=== PATIENT | male | born 1935 | race Caucasian/White ===

== ENCOUNTER 2019-03-25 11:42 | Emergency (ER) | payer MEDICARE, OTHER ==
[~2019-03-25] VITALS: Ht 170.2 cm; Wt 59.0 kg
[~2019-03-25 11:42] MED LIST: AMBIEN10 MG PO; ARICEPT10 MG PO; ASPIR 8181 MG ORAL; CALCARB 600600 MG PO; CALCIUM-FOLIC1 EACH PO; CLARITIN10 M2 PO; COLACE100 MG ORAL; COSOPT EYE DROP10 ML OP; DEPAKOTE500 MG PO; FLONASE1 SPRAYS NASAL; FOSAMAX70 MG PO; HYTRIN1 MG PO; ISOPTO CARPINE1 DRO2 BOTH EYES; KEPPRA500 MG ORAL; LIORESAL10 MG PO; NAMENDA5 MG PO; NORVASC5 MG PO; NUEDEXTA 20-101 EACH PO; PROTONIX40 MG ORAL; QUETIAPINE FUMA25 MG ORAL; SIMVASTATIN40 MG PO; TRAMADOL HCL50 MG PO; VIGAMOX1 DROP RIGHT EYE; ZESTRIL20 MG PO
--- NOTE | 2019-03-25 11:44 | NUR ---
ED Nurse Note: pt arrived to ed with [facility] from [facility] due to poor oral intake. pt is able to ambulate. pt reports he lost 20 lbs
[2019-03-25 11:45] VITALS: BP 132/84
[2019-03-25] MEDS ORDERED: ZANTAC150 MG ORAL (11:53)
[2019-03-25] MEDS ORDERED: DDAVP0.2 MG PO (11:53)
[2019-03-25] MEDS ORDERED: OYSCO-500500 M1 PO (11:53)
[2019-03-25] MEDS ORDERED: SIMBRINZA 1%-0.28 ML OP (11:53)
[2019-03-25] MEDS ORDERED: ACETAMINOPHEN500 MG ORAL (11:53)
[2019-03-25] MEDS ORDERED: BANOPHEN25 MG PO (11:53)
[2019-03-25] MEDS ORDERED: VITAMIN D22000 UNIT PO (11:55)
[2019-03-25] MEDS ORDERED: FLOMAX0.4 MG ORAL (11:55)
[2019-03-25] MEDS ORDERED: VESICARE10 MG ORAL (11:55)
[2019-03-25 12:33] LABS: HEMATOCRIT 39.2 % (42.0-52.0); HEMOGLOBIN 13.8 G/DL (14.2-18.0); MEAN CORPUSCULAR VOLUME 95 FL (80-99); PLATELET COUNT 74 K/UL (150-450); RED BLOOD COUNT 4.12 M/UL (4.70-6.10); RED CELL DISTRIBUTION WIDTH 12.9 % (11.6-14.8); WHITE BLOOD COUNT 5.1 K/UL (4.8-10.8)
--- NOTE | 2019-03-25 12:49 | NUR ---
ED Nurse Note: X ray taken at bedside.
[2019-03-25 12:55] LABS: ALANINE AMINOTRANSFERASE 10 U/L (12-78); ALBUMIN 3.7 G/DL (3.4-5.0); ALBUMIN/GLOBULIN RATIO 0.9 (1.0-2.7); ALKALINE PHOSPHATASE 37 U/L (46-116); ASPARTATE AMINO TRANSFERASE 24 U/L (15-37); BILIRUBIN,TOTAL 0.5 MG/DL (0.2-1.0); BLOOD UREA NITROGEN 25 mg/dL (7-18); CALCIUM 9.5 MG/DL (8.5-10.1); CARBON DIOXIDE 26 MMOL/L (21-32); CREATININE 1.3 MG/DL (0.55-1.30)
[2019-03-25 12:56] LABS: INR 1.2 (0.9-1.1)
[2019-03-25 13:02] LABS: CHLORIDE 105 MMOL/L (98-107); POTASSIUM 3.9 MMOL/L (3.5-5.1); SODIUM 144 MMOL/L (136-145)
[2019-03-25 13:47] VITALS: BP 127/84
--- NOTE | 2019-03-25 13:53 | NUR ---
ED Nurse Note: pt refused vre/cre
--- NOTE | 2019-03-25 14:04 | Emergency Room Report ---
History of Present Illness General Chief Complaint: Generalized Weakness Source: Patient, Medical Record Present Illness HPI Patient is an 83-year-old male brought in by EMS basic ambulance after increased generalized weakness and failure to thrive. Patient a prior history of CVA as well as psychiatric disease. He is taking Depakote currently due to seizures. He reports having decreased appetite and states that he had been losing weight. He had not been vomiting or having any diarrhea. He reports having eaten some food earlier in the day.Per PMD he had lost approximately 6 pounds. Allergies: Coded Allergies: No Known Allergies (Unverified , 11/06/11) Patient History Past Medical History: see triage record Reviewed Nursing Documentation: PMH: Agreed; PSxH: Agreed Nursing Documentation-PMH Past Medical History: No History, Except For Hx Cardiac Problems: No - Hyperlipidemia Hx Hypertension: Yes - Glaucoma Hx Pacemaker: No Hx Asthma: No Hx COPD: No Hx Diabetes: No Hx Cancer: No Hx Gastrointestinal Problems: No Hx Dialysis: No History Of Psychiatric Problem: No Hx Neurological Problems: Yes - Dementia Hx Cerebrovascular Accident: Yes Hx Dementia: Yes Hx Seizures: No Review of Systems All Other Systems: negative except mentioned in HPI Physical Exam Vital Signs Date Time Temp Pulse Resp B/P (MAP) Pulse Ox O2 Delivery O2 Flow Rate FiO2 03/25/19 11:45 78 16 03/25/19 11:45 98.2 132/84 (100) 99 Room Air Sp02 EP Interpretation: reviewed, normal General Appearance: normal inspection, well appearing, no apparent distress, alert, Chronically Ill Head: atraumatic ENT: normal ENT inspection, hearing grossly normal, normal voice Neck: normal inspection, full range of motion, supple, no bony tend Respiratory: normal inspection, lungs clear, normal breath sounds, no respiratory distress, no retraction, no wheezing Cardiovascular #1: regular rate, rhythm, no edema Gastrointestinal: normal inspection, normal bowel sounds, non tender, soft, no guarding, no hernia Genitourinary: no CVA tenderness Musculoskeletal: normal inspection, back normal, normal range of motion Neurologic: alert, motor weakness - Left upper extremity with hemiplegia, shuffling gait, responsive, speech normal, normal inspection Psychiatric: normal inspection, judgement/insight normal, mood/affect normal Skin: no rash Medical Decision Making Diagnostic Impression: Primary Impression: Episode of generalized weakness Additional Impression: CVA, old, hemiparesis ER Course Patient present for increased generalized weakness. Differential diagnosis includes not limited to electrolyte abnormality, depression, malignancy among others. Because of complexity of patient's case laboratory tests and imaging studies were ordered. Patient's laboratory studies were unremarkable. He was noted to have some slight elevation of his BUN/creatinine which is apparently chronic. Patient was seen by his primary care physician in the emergency department. Per PMD patient's elevation of BUN/creatinine is chronic. Chest x- ray 1 view interpreted by me showed chronic interstitial lung disease without evidence of infiltrate. Patient was endorsed to Dr. العلي pending urinalysis results. Patient may be discharged home after discussion with Dr. Weiner. Labs Test 03/25/19 12:07 White Blood Count 5.1 K/UL (4.8-10.8) Red Blood Count 4.12 M/UL (4.70-6.10) Hemoglobin 13.8 G/DL (14.2-18.0) Hematocrit 39.2 % (42.0-52.0) Mean Corpuscular Volume 95 FL (80-99) Mean Corpuscular Hemoglobin 33.5 PG (27.0-31.0) Mean Corpuscular Hemoglobin Concent 35.3 G/DL (32.0-36.0) Red Cell Distribution Width 12.9 % (11.6-14.8) Platelet Count 74 K/UL (150-450) Mean Platelet Volume 9.9 FL (6.5-10.1) Neutrophils (%) (Auto) % (45.0-75.0) Lymphocytes (%) (Auto) % (20.0-45.0) Monocytes (%) (Auto) % (1.0-10.0) Eosinophils (%) (Auto) % (0.0-3.0) Basophils (%) (Auto) % (0.0-2.0) Differential Total Cells Counted 100 Neutrophils % (Manual) 51 % (45-75) Lymphocytes % (Manual) 42 % (20-45) Monocytes % (Manual) 6 % (1-10) Eosinophils % (Manual) 1 % (0-3) Basophils % (Manual) 0 % (0-2) Band Neutrophils 0 % (0-8) Platelet Estimate Decreased Platelet Morphology Normal Red Blood Cell Morphology Normal Prothrombin Time 12.7 SEC (9.30-11.50) Prothromb Time International Ratio 1.2 (0.9-1.1) Activated Partial Thromboplast Time 23 SEC (23-33) Sodium Level 144 MMOL/L (136-145) Potassium Level 3.9 MMOL/L (3.5-5.1) Chloride Level 105 MMOL/L (98-107) Carbon Dioxide Level 26 MMOL/L (21-32) Blood Urea Nitrogen 25 mg/dL (7-18) Creatinine 1.3 MG/DL (0.55-1.30) Estimat Glomerular Filtration Rate 53.0 mL/min (>60) Glucose Level 117 MG/DL (74-106) Calcium Level 9.5 MG/DL (8.5-10.1) Total Bilirubin 0.5 MG/DL (0.2-1.0) Aspartate Amino Transf (AST/SGOT) 24 U/L (15-37) Alanine Aminotransferase (ALT/SGPT) 10 U/L (12-78) Alkaline Phosphatase 37 U/L (46-116) Troponin I 0.000 ng/mL (0.000-0.056) Total Protein 7.6 G/DL (6.4-8.2) Albumin 3.7 G/DL (3.4-5.0) Globulin 3.9 g/dL Albumin/Globulin Ratio 0.9 (1.0-2.7) Lipase 106 U/L (73-393) Valproic Acid (Depakene) Level 63 MCG/ML (50-100) Last Vital Signs Date Time Temp Pulse Resp B/P (MAP) Pulse Ox O2 Delivery O2 Flow Rate FiO2 03/25/19 13:47 98.2 74 15 127/84 98 Room Air Status: improved Disposition: HOME, SELF-CARE Condition: Stable Referrals: Han Weiner MD (PCP) Adrian Yusuf MD Mar 25, 2019 14:04
--- NOTE | 2019-03-25 14:37 | NUR ---
ED Nurse Note: urine sent to lab
[2019-03-25 15:02] LABS: APPEARANCE,URINE CLEAR; BILIRUBIN, URINE NEGATIVE (NEGATIVE); GLUCOSE, URINE (UA) NEGATIVE (NEGATIVE); KETONES,URINE 1+ (NEGATIVE); LEUKOCYTE ESTERASE ,URINE NEGATIVE (NEGATIVE); NITRITE,URINE NEGATIVE (NEGATIVE); PH,URINE 6 (4.5-8.0); PROTEIN,URINE 2+ (NEGATIVE); UROBILINOGEN,URINE NORMAL MG/DL (0.0-1.0)
[2019-03-25 15:05] LABS: COLOR,URINE YELLOW
[2019-03-25 15:10] VITALS: BP 119/76
--- NOTE | 2019-03-25 15:11 | NUR ---
ED Nurse Note: Pt in room, quiet, resting in bed.
--- NOTE | 2019-03-25 15:26 | Diagnostic Imaging Report ---
Indication: Shortness of breath Technique: One view of the chest Comparison: 05/26/2013 Findings: Lungs and pleural spaces are clear. The heart size is normal. There is tortuous and calcified. Impression: No acute process
--- NOTE | 2019-03-25 15:30 | NUR ---
ED Nurse Note: spoke with Jenna, claim administrator from [facility] and informed that patient will return to facility.
--- NOTE | 2019-03-25 16:41 | NUR ---
ED Nurse Note: [facility] at bedside. pt belongings given to ambulance personnel. pt vss. no acute distress noted. Jenna Addendum: 03/25/19 at 1643 by PDELEON ED Nurse Note: [facility] at bedside. pt belongings given to ambulance personnel. pt vss. no acute distress noted. Jenna sap administrator aware of pt arrival
[2019-03-25 16:43] VITALS: BP 159/64
--- NOTE | 2019-03-25 16:45 | History and Physical Report ---
DATE OF ADMISSION: 03/25/2019 CHIEF COMPLAINT AND REASON FOR HOSPITALIZATION: The patient admitted with failure to thrive, weight loss. HISTORY OF PRESENT ILLNESS: The patient is an 83-year-old man who lives in a assisted living facility. 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 He has a history of psychiatric problems. He has been eating poorly. He states he has a poor appetite and staff at his facility has been very concerned about his weight loss over 6 pounds, but the patient states over 20 pounds in the last few months. He has been on ranitidine for gastritis. He has not had any nausea, vomiting, hematochezia, melena, or heartburn. The patient has BPH and had complained of urinary frequency and was on medications for the above. The patient is on Keppra, I believe for psychotropic reasons, not for seizures, there are no known seizures. He has history of poor vision and complains that he cannot get to the eye doctor, he cannot get new glasses because he is not covered by his insurance and he states, "I dont know if I want to go on living if I can't see." PAST SURGICAL HISTORY: Bilateral corneal transplant and cataract surgery, and appendectomy. ALLERGIES: None known. MEDICATIONS: Tylenol 1000 mg t.i.d. for arthritis, aspirin 81 mg daily, Benadryl 25 mg four times daily, desmopressin 0.2 mg at bedtime, DSS 100 mg b.i.d., Flonase two sprays daily, Keppra 500 mg b.i.d., bisacodyl 5 mg b.i.d. and hold if loose bowel movement, Namenda 5 mg b.i.d., Os-Heladio b.i.d., ranitidine 150 mg with dinner, Simbrinza eye drops in both eyes three times a day, simvastatin 20 mg daily, VESIcare 10 mg at bedtime, tamsulosin 0.8 mg at bedtime, vitamin D2 50,000 units weekly, bisacodyl p.r.n., p.r.n., Depakote ER 500 mg three times a day, Seroquel 25 mg three times a day, sertraline 25 mg daily. HABITS: He is a former smoker, quit many years ago. No alcohol or drugs. SOCIAL HISTORY: He lives in an assisted living facility. SYSTEM REVIEW: HEAD, EYES, EARS, NOSE, AND THROAT: He has poor vision bilaterally. Hearing is diminished. ENDOCRINE: No diabetes or thyroid disease. PULMONARY: No chronic cough or asthma. He is a former smoker. CARDIAC: No angina or CO or hypertension. He has had bradycardia in the past, asymptomatic. GASTROINTESTINAL: See history of present illness. GENITOURINARY: He has some incontinence, wears diapers. He has BPH. No dysuria. NEUROLOGIC: History of CVA with left-sided weakness for many years, no change. He walks with a walker. MUSCULOSKELETAL: He has contracture of the left arm and some osteoarthritis in the knees. NEUROLOGIC: As above. PSYCHIATRIC: History of depression and psychiatric issues. PHYSICAL EXAMINATION: GENERAL: The patient is seen in the emergency room. He is a thin man, in no acute distress. VITAL SIGNS: Temperature 98.2, pulse 78, respirations 16, blood pressure 132/84. HEAD, EYES, EARS, NOSE, AND THROAT: Sclerae are nonicteric. Ocular motions intact in all directions. Vision is poor. Hearing is poor. Throat is clear. NECK: No adenopathy or thyroid enlargement. LUNGS: Clear. HEART: Regular rhythm. No murmur. ABDOMEN: Soft without organomegaly or tenderness. RECTAL: The prostate is enlarged, grade 2-3/4 with the right lobe greater than the left, but not really very hard or nodular. EXTREMITIES: No edema, cyanosis, or clubbing. There is left arm contracture. NEUROLOGIC: He is alert and responsive. There is left-sided weakness. There is some minimal tremor in the right arm when he is somewhat anxious. SKIN: No lesions. LABORATORY DATA: Pending. IMPRESSION: 1. Failure to thrive. 2. Weight loss significant. 3. Anorexia. 4. Old CVA, left-sided weakness. 5. History of treatment for gastritis. 6. BPH, possible asymptomatic cancer of prostate. 7. History of taking Keppra, likely for psychiatric reasons. 8. Depression. 9. Impaired vision. PLAN: We will evaluate the labs. Evaluate his treatment regimen. Condition is difficult to assess and await for further labs before making a disposition. Han Weiner M.D. DR: CHUYITA JOB#: [id number] CC:
== END 2019-03-25 16:30 | disposition home or self-care (01) ==
LOC: EDBD 11:42 → EDUNIT# 11:42 → EMR 12:30 → CANBEDREQ 15:31 → EMR 16:30
DX: R53.1 Weakness (principal); F03.90 Unspecified dementia, unspecified severity, without behavioral disturbance, psychotic disturbance, mood disturbance, and anxiety; E78.5 Hyperlipidemia, unspecified; I10 Essential (primary) hypertension; Z86.73 Personal history of transient ischemic attack (TIA), and cerebral infarction without residual deficits; G40.909 Epilepsy, unspecified, not intractable, without status epilepticus; Z79.899 Other long term (current) drug therapy
CPT/HCPCS: 36415; 71045; 80053; 80164; 81003; 83690; 84484; 85007; 85025; 85610; 85730; 99284; J7040

== ENCOUNTER 2019-04-02 16:38 | Inpatient (IN) | payer MEDICARE, OTHER ==
[~2019-04-02] VITALS: Ht 165.1 cm; Wt 63.5 kg
[~2019-04-02 16:38] MED LIST changes: +ACETAMINOPHEN500 MG ORAL; +BANOPHEN25 MG PO; +DDAVP0.2 MG PO; +FLOMAX0.4 MG ORAL; +OYSCO-500500 M1 PO; +SIMBRINZA 1%-0.28 ML OP; +VESICARE10 MG ORAL; +VITAMIN D22000 UNIT PO; +ZANTAC150 MG ORAL
[2019-04-02 16:40] VITALS: BP 130/88
--- NOTE | 2019-04-02 16:40 | NUR ---
ED Nurse Note: Pt [facility] d/t freq. episodes of vomiting. Upon assessment, verbalized pain on left lower chest/upper abdomen. Pt's skin is intact. Pt has NKA. Placed on bed and gown; hooked to typewriter assembler. Provided warm blankets, rectal temp at 96.8F. Pt satting at 96% on RA. Will continue to monitor.
--- NOTE | 2019-04-02 16:50 | NUR ---
ED Nurse Note: Dr. Loza at bedside.
[2019-04-02] MEDS ORDERED: Morphine Sulfate 2mg/ml Inj(IV/IM USE ONLY) IVP ONE (17:00)
--- NOTE | 2019-04-02 17:11 | NUR ---
ED Nurse Note: X-ray at bedside done.
[2019-04-02 17:12] LABS: HEMATOCRIT 37.3 % (42.0-52.0); HEMOGLOBIN 12.6 G/DL (14.2-18.0); MEAN CORPUSCULAR VOLUME 96 FL (80-99); PLATELET COUNT 86 K/UL (150-450); RED CELL DISTRIBUTION WIDTH 14.1 % (11.6-14.8); WHITE BLOOD COUNT 5.5 K/UL (4.8-10.8)
[2019-04-02 17:13] LABS: BASOPHILS % (AUTO) 1.2 % (0.0-2.0); EOSINOPHILS % (AUTO) 0.4 % (0.0-3.0); LYMPHOCYTES % (AUTO) 48.8 % (20.0-45.0); MONOCYTES % (AUTO) 7.9 % (1.0-10.0); NEUTROPHILS % (AUTO) 41.8 % (45.0-75.0)
--- NOTE | 2019-04-02 17:16 | Emergency Room Report ---
History of Present Illness General Chief Complaint: Vomiting Source: Patient, EMS Present Illness HPI Patient presents from assisted living. Apparently he was vomiting earlier. They say that he complained about abdominal pain. He denied abdominal pain to paramedics. He did complain about shortness of breath with them. It is unclear onset. EKG was done in the field. He was downgraded to S and transported here. There was no vomiting in the field. The patient more complains about left-sided upper abdomen or chest pain. He is a poor historian. He denies pain at this time. Patient evaluated 03/25 and returned to SNF. Not eating. Apparently he was discharged with a Garcia catheter which was discontinued at his long term facility. 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 Reviewed Nursing Documentation: PMH: Agreed; PSxH: Agreed Nursing Documentation-PMH Past Medical History: No History, Except For Hx Cardiac Problems: No - Hyperlipidemia Hx Hypertension: Yes - Glaucoma Hx Pacemaker: No Hx Asthma: No Hx COPD: No Hx Diabetes: No Hx Cancer: No Hx Gastrointestinal Problems: No Hx Dialysis: No Hx Neurological Problems: Yes - Dementia Hx Cerebrovascular Accident: Yes Hx Dementia: Yes Hx Seizures: No Review of Systems All Other Systems: limited Physical Exam Vital Signs Date Time Temp Pulse Resp B/P (MAP) Pulse Ox O2 Delivery O2 Flow Rate FiO2 04/02/19 16:32 98.1 70 19 130/88 (102) 100 Room Air Sp02 EP Interpretation: reviewed, normal General Appearance: no apparent distress, alert, non-toxic, other - Somewhat confused, Chronically Ill Head: normocephalic, atraumatic - Skull deformities right temporal area Eyes: bilateral eye normal inspection, bilateral eye PERRL, bilateral eye EOMI ENT: dry mucus membranes Neck: full range of motion, supple Respiratory: chest non-tender, lungs clear, normal breath sounds Cardiovascular #1: regular rate, rhythm, no edema Cardiovascular #2: 2+ radial (R) Gastrointestinal: non tender, decreased bowel sounds, scaphoid Genitourinary: no CVA tenderness Musculoskeletal: back normal, normal range of motion, no calf tenderness Neurologic: alert, motor strength/tone normal - Weak sitting up, DTRs symmetric , sensory intact, other - Somewhat confused Psychiatric: mood/affect normal Skin: warm/dry, other - Actinic keratoses right [place] area Medical Decision Making Diagnostic Impression: Primary Impression: Dehydration Additional Impressions: Renal insufficiency Failure to thrive Qualified Codes: R62.7 - Adult failure to thrive Hypokalemia ER Course Patient presents with history of vomiting, possible shortness of breath and alleges abdominal pain. Differential includes acute myocardial infarction, gastritis, pancreatitis, gastroenteritis, pneumonia amongst others. Evaluation will be with EKG, chest x-ray, abdomen film and labs. The patient is in no distress and denies pain at this time. The patient is placed on a monitor tech. Patient has clear signs of dehydration. EKG sinus bradycardia rate of 54 otherwise normal EKG. chest x-ray no infiltrates. Abdominal film with increased stool load no obstruction. Normal white count. Renal insufficiency. Slightly low potassium. Urinalysis with some red cells and white cells. Discussed with Dr. Weiner. Discussed with Dr. Bright. Admitted medical floor. Laboratory Tests Test 04/02/19 16:40 04/02/19 17:30 White Blood Count 5.5 K/UL (4.8-10.8) Red Blood Count 3.90 M/UL (4.70-6.10) L Hemoglobin 12.6 G/DL (14.2-18.0) L Hematocrit 37.3 % (42.0-52.0) L Mean Corpuscular Volume 96 FL (80-99) Mean Corpuscular Hemoglobin 32.2 PG (27.0-31.0) H Mean Corpuscular Hemoglobin Concent 33.6 G/DL (32.0-36.0) Red Cell Distribution Width 14.1 % (11.6-14.8) Platelet Count 86 K/UL (150-450) L Mean Platelet Volume 7.4 FL (6.5-10.1) Neutrophils (%) (Auto) 41.8 % (45.0-75.0) L Lymphocytes (%) (Auto) 48.8 % (20.0-45.0) H Monocytes (%) (Auto) 7.9 % (1.0-10.0) Eosinophils (%) (Auto) 0.4 % (0.0-3.0) Basophils (%) (Auto) 1.2 % (0.0-2.0) Prothrombin Time 12.4 SEC (9.30-11.50) H Prothrombin Time INR 1.2 (0.9-1.1) H Activated Partial Thromboplast Time 27 SEC (23-33) Sodium Level 145 MMOL/L (136-145) Potassium Level 3.0 MMOL/L (3.5-5.1) L Chloride Level 104 MMOL/L (98-107) Carbon Dioxide Level 23 MMOL/L (21-32) Anion Gap 18 mmol/L (5-15) H Blood Urea Nitrogen 24 mg/dL (7-18) H Creatinine 1.4 MG/DL (0.55-1.30) H Estimate Glomerular Filtration Rate 48.6 mL/min (>60) Glucose Level 127 MG/DL (74-106) H Lactic Acid Level 2.00 mmol/L (0.4-2.0) Calcium Level 9.4 MG/DL (8.5-10.1) Total Bilirubin 0.4 MG/DL (0.2-1.0) Aspartate Amino Transferase (AST) 18 U/L (15-37) Alanine Aminotransferase (ALT) 11 U/L (12-78) L Alkaline Phosphatase 35 U/L (46-116) L Total Creatine Kinase 55 U/L (26-308) Troponin I 0.009 ng/mL (0.000-0.056) Total Protein 6.7 G/DL (6.4-8.2) Albumin 3.5 G/DL (3.4-5.0) Globulin 3.2 g/dL Albumin/Globulin Ratio 1.1 (1.0-2.7) Lipase 93 U/L (73-393) Urine Color Yellow Urine Appearance Slightly cloudy Urine pH 5 (4.5-8.0) Urine Specific [place] 1.015 (1.005-1.035) Urine Protein 2+ (NEGATIVE) H Urine Glucose (UA) Negative (NEGATIVE) Urine Ketones 1+ (NEGATIVE) H Urine Blood 4+ (NEGATIVE) H Urine Nitrite Negative (NEGATIVE) Urine Bilirubin Negative (NEGATIVE) Urine Urobilinogen Normal MG/DL (0.0-1.0) Urine Leukocyte Esterase 1+ (NEGATIVE) H Urine RBC 30-40 /HPF (0 - 0) H Urine WBC 5-10 /HPF (0 - 0) H Urine Squamous Epithelial Cells Occasional /LPF Urine Bacteria Few /HPF (NONE) Urine Mucus Few /LPF (NONE/OCC) H EKG Diagnostic Results Rate: bradycardiac Rhythm: NSR ST Segments: no acute changes Rhythm Strip Diag. Results EP Interpretation: yes Rhythm: no PVC's, no ectopy, other - Sinus bradycardia Chest X-Ray Diagnostic Results Chest X-Ray Diagnostic Results : Chest X-Ray Ordered: Yes # of Views/Limited/Complete: 1 View Indication: Other EP Interpretation: Yes Interpretation: no consolidation, no effusion, no pneumothorax Impression: No acute disease Electronically Signed by: Xray evaluated by az Parish Loza MD. Other X-Ray Diagnostic Results Other X-Ray Diagnostic Results : X-Ray ordered: abd # of Views/Limited Vs Complete: 1 View Indication: Other EP Interpretation: Yes Interpretation: nonspecific bowel gas, no sbo, other - increased stool Impression: Other Electronically Signed by: Electronically signed by Parish Loza MD Last Vital Signs Date Time Temp Pulse Resp B/P (MAP) Pulse Ox O2 Delivery O2 Flow Rate FiO2 04/03/19 00:01 Room Air 04/02/19 20:10 98.6 78 19 136/82 99 Status: improved Disposition: ADMITTED INPATIENT Condition: Serious Parish Loza MD Apr 02, 2019 17:16
[2019-04-02 17:22] LABS: ANION GAP 18 mmol/L (5-15); BLOOD UREA NITROGEN 24 mg/dL (7-18); CALCIUM 9.4 MG/DL (8.5-10.1); CARBON DIOXIDE 23 MMOL/L (21-32); CHLORIDE 104 MMOL/L (98-107); CREATININE 1.4 MG/DL (0.55-1.30); INR 1.2 (0.9-1.1); SODIUM 145 MMOL/L (136-145)
[2019-04-02 17:28] LABS: ALANINE AMINOTRANSFERASE 11 U/L (12-78); ALBUMIN 3.5 G/DL (3.4-5.0); ALBUMIN/GLOBULIN RATIO 1.1 (1.0-2.7); ALKALINE PHOSPHATASE 35 U/L (46-116); ASPARTATE AMINO TRANSFERASE 18 U/L (15-37); BILIRUBIN,TOTAL 0.4 MG/DL (0.2-1.0); CREATINE KINASE 55 U/L (26-308)
[2019-04-02 17:47] VITALS: BP 132/67
[2019-04-02] MEDS ORDERED: Sennosides 8.6mg tab ORAL PRN (18:00)
[2019-04-02] MEDS ORDERED: Milk of Magnesia 30ml Ud ORAL PRN (18:00)
--- NOTE | 2019-04-02 18:11 | Diagnostic Imaging Report ---
EXAM: XR Abdomen, 2 Views CLINICAL HISTORY: ABD PAIN TECHNIQUE: Frontal view of the abdomen/pelvis with upright view of the abdomen. COMPARISON: None FINDINGS: Hardware: None. Abdomen: Nonobstructive but nonspecific bowel gas pattern. Moderate to large amount of stool may represent constipation. No free air. Bones: Degenerative changes of the spine. Soft tissues: Normal. Lower chest: Normal. IMPRESSION: 1. Nonobstructive but nonspecific bowel gas pattern. No free air. 2. Moderate to large amount of stool may represent constipation.
--- NOTE | 2019-04-02 18:12 | Diagnostic Imaging Report ---
EXAM: XR Chest, 1 View CLINICAL HISTORY: ABD PAIN TECHNIQUE: Frontal view of the chest. COMPARISON: Chest radiograph on 03/25/2019 FINDINGS: Hardware: None. Lungs/pleura: Normal. No focal consolidation. No pleural effusion or pneumothorax. Heart/mediastinum: Atherosclerotic calcifications in the aorta. No cardiomegaly. Soft tissues: Unremarkable. Bones: No acute fracture. Degenerative changes of the acromioclavicular joints and spine. Upper abdomen: Normal. IMPRESSION: No acute disease identified.
[2019-04-02 18:44] LABS: APPEARANCE,URINE SLIGHTLY CLOUDY; BILIRUBIN, URINE NEGATIVE (NEGATIVE); COLOR,URINE YELLOW; GLUCOSE, URINE (UA) NEGATIVE (NEGATIVE); KETONES,URINE 1+ (NEGATIVE); LEUKOCYTE ESTERASE ,URINE 1+ (NEGATIVE); NITRITE,URINE NEGATIVE (NEGATIVE); PH,URINE 5 (4.5-8.0); PROTEIN,URINE 2+ (NEGATIVE); UROBILINOGEN,URINE NORMAL MG/DL (0.0-1.0)
[2019-04-02] MEDS: NS w/KCl 40mEq 1,000 ML IV SCH (19:08)
[2019-04-02] MEDS: Depakote ER 500mg tab ORAL SCH (19:09)
[2019-04-02 19:27] VITALS: BP 127/71
--- NOTE | 2019-04-02 19:33 | NUR ---
HAND-OFF: Report given to William MERA.
--- NOTE | 2019-04-02 19:34 | NUR ---
ED Nurse Note: Received report from Aspen MERA. Pt alert and oriented, verbally responsive. Not in any distress. Will cont plan of care.
--- NOTE | 2019-04-02 19:50 | NUR ---
ED Nurse Note: Report given to Ely MERA.
[2019-04-02 20:10] VITALS: BP 136/82
--- NOTE | 2019-04-02 20:10 | NUR ---
TRANSFER TO FLOOR: Patient transferred to Medsurg unit. Report given to Ely MERA. Pt aert and orientedx3, verbally responsive. Not in any distress. IV line on right hand 20g patent and intact. On KCl 40meq @100cc/hr patent and infusing well. No skin issues. Swabs are sent. Med recon done. All belongings sent with the patient.
--- NOTE | 2019-04-02 20:38 | NUR ---
NURSE NOTES: Received report from [facility]. Pt arrived at 2019 on the unit. AAO x 2-3, verbally responsive, on room air. Denies pain and no labor breathing. Vitals 120/75 BP, 90HR, 95% O2, 97.7F. IV site intact and running IFV. No belongings noted. Meds recon done. Swabs done from ED. Admission orders present. Small amount of blood noted from penis. No pressure ulcer but redness scrotum. Orientation to the facility and unit given. Demonstrated how to use the call light. Bed locked, lowest position, alarm on, side rails up, call light within reach. Will continue to monitor.
[2019-04-02] MEDS: Docusate 100mg cap ORAL SCH ×2 (21:00→21:10)
[2019-04-02] MEDS: Solifenacin 10mg tab ORAL SCH ×2 (21:09→21:20)
--- NOTE | 2019-04-02 21:21 | NUR ---
NURSE NOTES: Pt refused meds crushed with apple sauce. Explained risks and benefits. Still refuse x 2. Wasted all crushed meds.
[2019-04-03] VITALS: BP 113/70
--- NOTE | 2019-04-03 03:25 | NUR ---
NURSE NOTES: Pt is high fall risk. Fall education given but unable to sign on the fall education paper. Moved pt to room 409-2 to monitor closely.
[2019-04-03 04:00] VITALS: BP 123/91
[2019-04-03] MEDS: NS w/KCl 40mEq 1,000 ML IV SCH (05:26)
--- NOTE | 2019-04-03 06:32 | NUR ---
NURSE NOTES: Pt uncooperative and refused blood drawing. Stated I want to . Explained risks and benefits. Still refused x 3
--- NOTE | 2019-04-03 07:40 | NUR ---
NURSE NOTES: Pt hasn't urinate. Performed bladder scan and residual is 420cc. Called Dr. Weiner and said if pt doesn't urinate until 10am, insert in and out cath.
[2019-04-03] MEDS ORDERED: Dorzolamide 2% 10ml Btl BOTH EYES SCH (08:00)
[2019-04-03] MEDS ORDERED: Cosopt Opth Soln 10 mL Btl BOTH EYES SCH ×3 (08:00→09:00)
[2019-04-03] MEDS ORDERED: Brimonidine 0.2% Opth Sol BOTH EYES SCH (08:00)
--- NOTE | 2019-04-03 08:00 | NUR ---
NURSE NOTE Patient is awake and alert to name,respirations unlabored/IV fluids infusing as ordered. Per report patient has not voided,bladder scan was done and DR Weiner was notified of results,will monitor and if patient has not voided will do straight cath as ordered ,noted small amount of blood around Penile area., i&c tech here for Abdominal ultrasou. Bed alarm on,call light within reach.
[2019-04-03] MEDS ORDERED: Flonase Nasal Inhaler 16gm NASAL SCH (09:00)
--- NOTE | 2019-04-03 09:29 | Diagnostic Imaging Report ---
EXAM: US Abdomen Complete CLINICAL HISTORY: ABD PAIN TECHNIQUE: Real-time ultrasound of the abdomen with image documentation. COMPARISON: No relevant prior studies available. FINDINGS: Liver: Unremarkable. No mass. No intrahepatic bile duct dilation. Left lobe not visualized due to body habitus Gallbladder: The gallbladder is mildly distended. The gallbladder wall is at the upper limits of normal measuring 2.75 mm. No calcified stones are identified. The patient was not focally tender over the gallbladder during the examination. There is continued clinical concern for cholecystitis, HIDA scan is recommended for further evaluation. Common bile duct: Common bile duct is at the upper limbs normal measuring 5.2 mm. . Pancreas: Unremarkable as visualized. Kidneys: Unremarkable. No stones. No solid mass. No hydronephrosis. Spleen: Unremarkable. No splenomegaly. Aorta: Unremarkable. No aneurysm. Inferior vena cava: Unremarkable. Free fluid: Note is made of moderate abdominal ascites as well as moderate fluid-filled, dilated loops of small bowel. Findings are suspicious for small bowel obstruction. Correlation with CT of the abdomen pelvis is recommended. IMPRESSION: 1. The gallbladder is mildly distended. The gallbladder wall is at the upper limits of normal measuring 2.75 mm. No calcified stones are identified. The patient was not focally tender over the gallbladder during the examination. Common bile duct is at the upper limbs normal measuring 5.2 mm. There is continued clinical concern for cholecystitis, HIDA scan is recommended for further evaluation. 2. Note is made of moderate abdominal ascites as well as moderate fluid- filled, dilated loops of dilated small bowel measuring up to 3 cm in diameter. Findings are suspicious for small bowel obstruction. Correlation with CT of the abdomen pelvis is recommended.
--- NOTE | 2019-04-03 10:14 | History & Physical ---
History and Physical History & Physicial # [id number] Coverage for Ramesh Dumont MD Apr 03, 2019 10:14
[2019-04-03 10:27] LABS: ANION GAP 23 mmol/L (5-15); BLOOD UREA NITROGEN 22 mg/dL (7-18); CALCIUM 8.8 MG/DL (8.5-10.1); CARBON DIOXIDE 15 MMOL/L (21-32); CHLORIDE 111 MMOL/L (98-107); CREATININE 1.7 MG/DL (0.55-1.30); SODIUM 149 MMOL/L (136-145)
[2019-04-03] MEDS: Lactulose 20gm/30ml UDC ORAL SCH ×2 (10:35→19:14)
[2019-04-03] MEDS: Docusate 100mg cap ORAL SCH ×2 (10:36→19:15)
[2019-04-03] MEDS: Depakote ER 500mg tab ORAL SCH ×2 (10:36→21:20)
[2019-04-03 10:39] LABS: ALANINE AMINOTRANSFERASE 8 U/L (12-78); ALKALINE PHOSPHATASE 34 U/L (46-116); ASPARTATE AMINO TRANSFERASE 19 U/L (15-37); BASOPHILS % (AUTO) 1.1 % (0.0-2.0); BILIRUBIN,TOTAL 0.4 MG/DL (0.2-1.0); HEMATOCRIT 42.3 % (42.0-52.0); HEMOGLOBIN 14.9 G/DL (14.2-18.0); LYMPHOCYTES % (AUTO) 31.1 % (20.0-45.0); MEAN CORPUSCULAR VOLUME 95 FL (80-99); MONOCYTES % (AUTO) 10.1 % (1.0-10.0); NEUTROPHILS % (AUTO) 57.6 % (45.0-75.0); PHOSPHORUS 3.7 MG/DL (2.5-4.9); PLATELET COUNT 107 K/UL (150-450); RED BLOOD COUNT 4.47 M/UL (4.70-6.10); RED CELL DISTRIBUTION WIDTH 12.7 % (11.6-14.8); WHITE BLOOD COUNT 6.3 K/UL (4.8-10.8)
[2019-04-03] MEDS ORDERED: Piperacillin/Tazobactam 3.375 GM in NS 110 ML IVPB SCH (11:30)
--- NOTE | 2019-04-03 11:42 | NUR ---
NURSE NOTES: Patient unable to urinate, bladder scan note 408ml,patients straight cath as ordered.noted 125cc of dark valerie color urine.Patient tolerated.
[2019-04-03 12:00] VITALS: BP 117/82
--- NOTE | 2019-04-03 12:17 | NUR ---
PT note PT eval completed, treatment initiated. Patient has muscle weakness and decrease balance, requiring extensive assist in mobility. Patient was unable to stand/ambulate. Patient was noted to be pale upon while seated at the EOB. He was assisted back in supine with BP 77/33 with O2 sats 82-87%. RN was in the room during eval/tx and was aware of VS. Patient was place on Trendelenburg position, BP 117/82, HR 120. Patient was also placed on 3l/min of O2; O2 sats increased to 93%. RN was still in the room and took over care. Patient can benefit from PT services, if he is medically stable, to increase his muscle strength and balance to enable him to return to [facility] Addendum: 04/03/19 at 1218 by ANGIE ROMERO PT Amended: Links added.
--- NOTE | 2019-04-03 12:30 | NUR ---
NURSE NOTE. Patient vital signs monitor, patient became hypotensive when out of bed with PT,02 applied due to 02 desat.
[2019-04-03] MEDS: D5 1/2NS w/KCl 20mEq 1,000 ML IV SCH ×2 (14:13→14:24)
[2019-04-03] MEDS: Brimonidine 0.2% Opth Sol BOTH EYES SCH ×2 (14:18→21:25)
[2019-04-03] MEDS: Piperacillin/Tazobactam 3.375 GM in NS 110 ML IVPB SCH ×2 (14:19→21:51)
[2019-04-03] MEDS: Dorzolamide 2% 10ml Btl BOTH EYES SCH ×2 (14:25→21:25)
--- NOTE | 2019-04-03 14:45 | NUR ---
NURSE NOTES: Garcia catheter inserted with return if valerie color urine.patient tolerated procedure Garcia anchored to leg.
--- NOTE | 2019-04-03 15:00 | History and Physical Report ---
DATE OF ADMISSION: 04/02/2019 I am covering for Dr. Han Weiner. HISTORY OF PRESENT ILLNESS: The patient is an 83-year-old and lives in an assisted living. The patient came in to emergency room with a complaint of vomiting. After initial evaluation, the patient is admitted with diagnoses of UTI, dehydration, renal insufficiency, electrolyte imbalances, and failure to thrive. 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 The patient has history of psychiatric problem. He has been eating poorly, however today he started with vomiting. The patient apparently has been losing weight about 20 pounds for the past few months. The patient has benign prostatic hypertrophy. The patient has no known seizure disorder. The patient has poor vision. PAST SURGICAL HISTORY: Significant for bilateral corneal transplant and cataract surgery. The patient also had appendectomy. ALLERGIES: Not known. MEDICATIONS: Medications list, according to the records, the patient takes aspirin, desmopressin, Keppra, Flonase, ranitidine, VESIcare, statins, vitamin D, Seroquel, Depakote, and Zoloft. HABITS: The patient being a former smoker, but has quit many years ago. PHYSICAL EXAMINATION: GENERAL: On examination today, the patient appears weak, is a poor historian. VITAL SIGNS: Temperature 97, pulse rate 65, but it is as high as 99, respiratory rate 20, and blood pressure 123/91. HEENT: Head is normocephalic. Sclerae not icteric. NECK: Rigid to all directions. LUNGS: Poor inspiratory effort. Decreased breath sounds over the bases. HEART: Mainly irregular. Occasional irregular beats. ABDOMEN: Slightly distended. Bowel sounds present. No mass palpable. EXTREMITIES: Lower extremities somewhat mottled. No edema. LABORATORY RESULTS: White blood cells 5.5 with slightly low platelet counts of 86,000 and hemoglobin of 12.6. Creatinine is 1.4. Potassium is 3. Urine has 40 rbc's, 10 wbc's, and 1+ . Chest x-ray is reported with no acute disease. Abdominal ultrasound slightly distended bladder, suspicious for small bowel obstruction. IMPRESSION: 1. Vomiting, most likely small bowel obstruction. 2. Dehydration. 3. Renal insufficiency. 4. Electrolyte imbalances. 5. Failure to thrive. 6. History of CVA. 7. History of psychiatric disease. PLAN: We will keep NPO and hydrate and correct the electrolytes with we will initiate antibiotics. Pending the cultures results and also GI and psychiatric consultation which is requested by Dr. Han Weiner. Will try to contact the family regarding the code status since overall prognosis is poor. According to how the patient's condition evolves, we will make the proper changes in our future management. Ramesh Santos M.D. DR: FUNMILAYO JOB#: [id number] CC: SANDEEP
--- NOTE | 2019-04-03 15:28 | NUR ---
CHARGE NURSE NOTE: BP 125/79, HR 124bpm, resp.rate 26, sat.942lnc. notified (he is covering ).
--- NOTE | 2019-04-03 15:30 | Consultation ---
DATE OF CONSULTATION: 04/03/2019 CONSULTING PHYSICIAN: Loy Ritchie M.D. CHIEF COMPLAINT: Abdominal pain. HISTORY OF PRESENT ILLNESS: This is an 83-year-old retirement patient with multiple medical problems which I will dictate in a second, poor historian, who was transferred to the hospital with complaint of chest pain, abdominal pain, and vomiting. Apparently, the patient did not vomit in the field nor in the ER. His chest pain also seems to be not significant. It seems mainly he has complaint of diffuse abdominal pain. In the ER, the patient had laboratory work, which showed evidence of mild anemia, renal insufficiency, and thrombocytopenia. The patient also found on x-ray to be constipated and GI consult requested for further evaluation. PAST MEDICAL HISTORY: 1. Syncope. 2. Bradycardia. 3. Right parietal craniotomy. 4. Bipolar disorder. 5. Hypertension. 6. Depression. ALLERGIES: No known drug allergies. MEDICATIONS: Please see medication reconciliation list. PAST SURGICAL HISTORY: Craniotomy. FAMILY HISTORY: Noncontributory. SOCIAL HISTORY: Currently lives in a retirement. No recent history of tobacco, alcohol, or IV drug abuse. PHYSICAL EXAMINATION: VITAL SIGNS: Temperature 97, pulse 67, respirations 20, blood pressure is 123/91. HEENT: Normocephalic and atraumatic. Sclerae anicteric. NECK: Supple. No evidence of obvious lymphadenopathy. CARDIOVASCULAR: Regular rate and rhythm. Plus S1, S2. LUNGS: Decreased breath sounds bilaterally based on supine exam. ABDOMEN: Soft, diffusely tender to palpation. Bowel sounds were hypoactive. No rebound. No guarding. No peritoneal sign. EXTREMITIES: No cyanosis. No clubbing. No edema. LABORATORY DATA: White count is 5.5, hemoglobin 12, hematocrit 37, and platelet count is 86,000. Chem-7, sodium is 145, potassium is 3.0, BUN is 24, creatinine is 1.4, and glucose is 127. Liver function grossly normal. Lactic acid normal. Lipase normal. Abdominal x-ray showed evidence of stool in the colon. ASSESSMENT AND PLAN: This is an 83-year-old male with abdominal pain and one episode of vomiting in the retirement. At this time, there is no evidence of any alarming sign and symptoms. There is no evidence of elevated white count. No elevated lactic acid. No acute finding on the x-ray. No elevated liver function tests. No evidence of any pancreatitis. This is maybe most probably severe constipation. The patient is very difficult. He will not take any medications talking to the nurses. He would not even let them to draw blood this morning. Our plan, I spoke with him a lot at the bedside, I explained to him he needs to move his bowel, so we are going to give him some bowel regimen including Colace, MiraLAX, lactulose, and Dulcolax suppository. We will re-evaluate him again tomorrow. We will repeat labs including anemia workup, thyroid panel, and repeat regular labs and we will consider doing CT scan if there is worsening of abdominal pain or no change by tomorrow. I want to thank, Dr. Weiner, for this kind referral. Loy Ritchie M.D. DR: AYDIN JOB#: [id number] CC: Han Weiner M.D.; Fax#: [phone]
[2019-04-03 16:00] VITALS: BP 125/79
[2019-04-03] MEDS ORDERED: Haloperidol 5mg/ml Inj IM SCH (16:00)
--- NOTE | 2019-04-03 16:00 | NUR ---
CHARGE NURSE NOTE: Pt confused, restless, trying get out of the bed. notified, Haldol 2 mgIM x1 ordered.
[2019-04-03] MEDS ORDERED: Tamsulosin 0.4mg cap ORAL SCH (18:00)
[2019-04-03 19:24] VITALS: BP 107/47
--- NOTE | 2019-04-03 19:36 | NUR ---
NURSE NOTES: Endorse fall risk ,bed alarm on,call light within reach.
--- NOTE | 2019-04-03 19:36 | NUR ---
HAND-OFF: Report given to Rocío MERA.
[2019-04-03 20:00] VITALS: BP 107/59
--- NOTE | 2019-04-03 20:00 | NUR ---
NURSE NOTES: Received report from EDE Perez. Pt awake, confused, high fall risk. On NC 3L. Pt is on NPO. OB stool uncollected. IV site intact and running IVF. Garcia intact and secured to the leg. Bed locked, lowest position, alarm on, side rails up, call light within reach. Will continue to monitor.
[2019-04-03] MEDS ORDERED: Miralax 17gm pkt ORAL SCH (21:00)
[2019-04-03] MEDS ORDERED: Pantoprazole Inj IVP SCH (21:00)
[2019-04-03] MEDS ORDERED: Heparin 5000 units/ml inj SUBQ SCH ×2 (21:00)
[2019-04-04] VITALS: BP 102/51
--- NOTE | 2019-04-04 01:50 | NUR ---
PRONOUNCEMENT: No Code. Called to pronounce patient. Absence of spontaneous respirations, no cardiac or breath sounds on auscultation. Pupils fixed and dilated. No carotid pulse or chest movement. Patient at [address]150 DR momin notified PER charge account identification clerk. Family,daughter Gina was notified at 0150 by Crate Repairer. no belongings.
--- NOTE | 2019-04-04 01:52 | Consultation ---
DATE OF CONSULTATION: 04/02/2019 HISTORY OF PRESENT ILLNESS: The patient is an 83-year-old male with history of depression and dementia who has been admitted to the hospital due to failure to thrive and not eating. The patient came to the hospital last week for not eating and was transferred back to assisted living. The facility called me three days ago with different complaints that the patient has not been eating and being more confused. The patient was transferred back to the [facility]. In addition, the patient has history of CVA with left-sided weakness. The patient is withdrawn, depressed, anhedonia, worthlessness, hopelessness, has lost about 25 pounds over the past few months. The patient is a poor historian and unable to provide any history. PAST PSYCHIATRIC HISTORY: Significant for depression, dementia, anxiety. MEDICATIONS: Depakote, , Seroquel in the facility, and trazodone. PAST MEDICAL HISTORY: CVA, UTI. ALLERGIES: No known drug allergies. SUBSTANCE ABUSE HISTORY: No known history of illicit drug use or alcohol. MENTAL STATUS EXAMINATION: The patient is alert, disoriented. Mood is depressed. Affect is constricted. Congruent with mood. Thought process is concrete. Thought content, no suicidal or homicidal ideation. Cognition is impaired. Insight and judgment is impaired. ASSESSMENT: State Line I Dementia, vascular type State Line II Deferred. State Line III As above. State Line IV Low. State Line V ___ PLAN: 1. We will start the patient on mirtazapine 15 mg at bedtime. 2. Discontinue Seroquel. 3. Discontinue Zoloft. 4. Discontinue trazodone. 5. Discontinue Zolpidem. 6. Start the patient on olanzapine 5 mg every 6 hours p.r.n., this medication may increase his appetite. 7. Discussed with Dr. Weiner and the family. Shamir Bright M.D. DR: Ean JOB#: [id number] CC:
--- NOTE | 2019-04-04 03:11 | NUR ---
NURSE NOTES: Pt with DNR, DNI and called to pronounce @ 0150. Called Dr. Weiner @ 0200 and notified family. Spoked to John Garcia ([id number], DNN # [id number]) from [employer] and [employer] notified Niko Elizondo. Family visited. Sent to hospital mortuary @ 0315.
--- NOTE | 2019-04-06 07:18 | Discharge Summary ---
Discharge Summary Discharge Summary _ SUMMARY DATE OF ADMISSION: 04/02/2019 DATE OF EXPIRATION: 04/04/2019 REASON FOR ADMISSION: 83 years old male, resident of assisted living, with past medical history of dehydration UTI renal insufficiency CVA with left-sided weakness, BPH psychiatric disorder was sent for evaluation due to failure to thrive poor appetite and episode of vomiting. Patient apparently lost over 20 pounds over the last few months. Upon evaluation vital signs were stable. Laboratory work-up revealed no leukocytosis ,hemoglobin 12.6, hematocrit 37.3, platelet count 86. Lactic acid 2.0. Potassium 3.0. BUN 24, creatinine 1.4. Glucose 127. Stable LFT and lipase. Troponin negative. EKG revealed sinus bradycardia , no acute ischemic changes. Urinalysis revealed +2 protein , borderline pyuria , +4 blood and few bacteria. Chest x-ray demonstrated no acute cardiopulmonary pathology. KUB revealed nonobstructive , but nonspecific bowel gas pattern. No free air. Moderate to large amount of stool possibly representing constipation. Patient subsequently admitted with dehydration , failure to thrive , renal insufficiency hypokalemia . CONSULTANTS: GI specialist Dr. Ritchie psychiatrist [facility] COURSE: Patient admitted and started on the IV hydration . Patient was kept n.p.o. Patient started on empiric antibiotics. Abdominal ultrasound revealed moderate abdominal ascites and moderate fluid- filled dilated loops of dilated small bowels, measuring up to 3 cm in diameter. Findings were suspicious for small bowel obstruction. Gallbladder was mildly distended. Common bile duct at upper lip limits of normal. Patient with DNR/DNI status. GI specialist followed. Bowel regimen instituted. Pain management was addressed as needed. Renal parameters and electrolytes were closely monitored. Creatinine was trending up. Urine culture was negative. DVT and GI prophylaxis provided. Psychiatrist seen and evaluated patient . Per psychiatrist , patient had dementia of vascular type. All previous psychiatric medication regimen was discontinued, and patient started on Remeron and Zyprexa. Patient condition unfortunately continued to deteriorate. Patient was pronounced at 01:52 am on 04/04/2019. Cause of : cardiopulmonary arrest FINAL DIAGNOSES: Small bowel obstruction Vomiting likely due to small bowel obstruction Dehydration Renal insufficiency Electrolyte imbalance Failure to thrive History of CVA History of psychiatric disorder I have been assigned to dictate discharge summary for this account. I was not involved in the patient's management. Angelica Castellano NP Apr 06, 2019 07:18
--- NOTE | 2019-04-06 19:30 | Discharge Summary ---
DATE OF ADMISSION: 04/02/2019 DATE OF DISCHARGE: 04/04/2019 PERTINENT HISTORY: The patient is an 83-year-old man who lives in assisted living facility has had some anorexia and weight loss. This was discussed several times with the family and staff. He was very depressed secondary to his severely impaired vision and glaucoma. He had had prior emergency room visit with negative labs. He presented to the emergency room with nausea and vomiting and clinical dehydration. He was found to have evidence of fecal impaction in the emergency room. PERTINENT PHYSICAL FINDINGS: See the dictation by Dr. Santos who saw the patient in my absence. HEAD EYES, EARS, NOSE, THROAT: Normocephalic. NECK: Rigid to all directions. LUNGS: Poor inspiratory effort. HEART: Occasional irregular beats. ABDOMEN: Slightly distended. Bowel sounds present. No mass. EXTREMITIES: No edema. NEUROLOGIC: Left hemiparesis. COURSE IN THE HOSPITAL: The patient was given IV hydration. KUB showed fecal impaction. Ultrasound showed gallbladder mildly distended. No calcified stone. Moderate ascites, fluid filled dilated loops of small bowel. KUB showed nonobstructive bowel pattern and constipation. The patient was in sinus rhythm. In the early a.m. hours of 04/04/2019, nurse found him in bed with cessation of vital signs. FINAL DIAGNOSES: 1. Nausea and vomiting. 2. Fecal impaction. 3. Anorexia. 4. History of old CVA with left hemiparesis. 5. History of sudden likely cardiac arrest in sleep. The family was notified and discussed the patient's expiration. Han Weiner M.D. : Rashida JOB#: [id number] CC:
== END 2019-04-04 01:50 | disposition expired | DRG 389 ==
LOC: EDBD 16:38 → EMR 17:42 → 4E 17:46 → EDBEDREQ 18:27 → 4E 20:16
DX: K56.609 Unspecified intestinal obstruction, unspecified as to partial versus complete obstruction (principal); I69.354 Hemiplegia and hemiparesis following cerebral infarction affecting left non-dominant side; R18.8 Other ascites; E86.0 Dehydration; R62.7 Adult failure to thrive; Z86.73 Personal history of transient ischemic attack (TIA), and cerebral infarction without residual deficits; F99 Mental disorder, not otherwise specified; F01.50 Vascular dementia, unspecified severity, without behavioral disturbance, psychotic disturbance, mood disturbance, and anxiety; R11.2 Nausea with vomiting, unspecified; Z66 Do not resuscitate; R00.1 Bradycardia, unspecified; I12.9 Hypertensive chronic kidney disease with stage 1 through stage 4 chronic kidney disease, or unspecified chronic kidney disease; N18.9 Chronic kidney disease, unspecified; E87.8 Other disorders of electrolyte and fluid balance, not elsewhere classified; Z87.891 Personal history of nicotine dependence; F32.9 Major depressive disorder, single episode, unspecified; K56.41 Fecal impaction; H40.9 Unspecified glaucoma; N40.0 Benign prostatic hyperplasia without lower urinary tract symptoms; E87.5 Hyperkalemia; H54.7 Unspecified visual loss
CPT/HCPCS: 36415; 71045; 74018; 76700; 80053; 80299; 81003; 82550; 82977; 83605; 83690; 83735; 83880; 84100; 84443; 84484; 84550; 85025; 85610; 85730; 86140; 87081; 87086; 93005; 96361; 96374; 96375; 99285; J2405; J7030; J8499